=== PATIENT | female | born 1945 | race Caucasian/White ===

== ENCOUNTER → 2023-06-29 13:41 | Outpatient (REF) | payer MEDICARE, OTHER, SELFPAY ==
[2023-06-29 14:29] LABS: % Basophils 0.9 % (0-2); % Eosinophils 5.4 % (0-6); % Immature Granulocytes 0.2 % (0-0.5); % Lymphocytes 23.6 % (20.5-51.1); % Monocytes 5.8 % (1.7-9.3); % Neutrophils 64.1 % (42.2-75.2); Absolute Basophils 0.1 10^3/uL (0-0.2); Absolute Eosinophils 0.5 10^3/uL (0-0.7); Absolute Lymphocytes 2.1 10^3/uL (1.2-3.4); Absolute Monocytes 0.5 10^3/uL (0.1-0.6); Absolute Neutrophils 5.8 10^3/uL (1.4-6.5); Hematocrit 40.6 % (37.0-47.0); Hemoglobin 13.6 g/dL (12.0-16.0); Mean Corp Hgb Conc. 33.5 g/dL (33.0-37.0); Mean Corpuscular Hgb 31.1 pg (27.0-31.0); Mean Corpuscular Volume 92.7 fL (81.0-99.0); Mean Platelet Volume 9.8 fL (7.4-10.4); Nucleated Red Blood Cells % 0 %; Platelet Count 248 10^3/uL (130-400); Red Blood Cell Count 4.38 10^6/uL (4.20-5.40); Red Cell Dist. Width 13.2 % (11.5-14.5); White Blood Cell Count 9.1 10^3/uL (4.8-10.8)
== END ==
LOC: RCS 13:41
PROVIDERS: ATTENDING PHYSICIAN Internal Medicine; FAMILY PHYSICIAN Family Medicine
DX: J44.9 Chronic obstructive pulmonary disease, unspecified (principal)
CPT/HCPCS: 36415; 85025; 93005

== ENCOUNTER 2023-09-13 14:45 | Outpatient (RCR) | payer MEDICARE, OTHER, SELFPAY | END 2023-09-13 23:59 | disposition home or self-care (01) | LOC: PURB 14:45 | PROVIDERS: ATTENDING PHYSICIAN Internal Medicine; FAMILY PHYSICIAN Family Medicine | DX: J44.9 Chronic obstructive pulmonary disease, unspecified (principal) | CPT/HCPCS: 94625; G0237 ==

== ENCOUNTER 2023-09-13 15:32 | Emergency (ER) | payer MEDICARE, OTHER, SELFPAY ==
[2023-09-13 15:33] VITALS: BP 162/92
[2023-09-13 16:05] VITALS: BP 178/82
[2023-09-13 16:08] VITALS: BMI 36.3
[2023-09-13 16:30] LABS: % Basophils 0.9 % (0-2); % Eosinophils 6.1 % (0-6); % Immature Granulocytes 0.3 % (0-0.5); % Lymphocytes 22.7 % (20.5-51.1); % Monocytes 6.7 % (1.7-9.3); % Neutrophils 63.3 % (42.2-75.2); Absolute Basophils 0.1 10^3/uL (0-0.2); Absolute Eosinophils 0.5 10^3/uL (0-0.7); Absolute Lymphocytes 1.8 10^3/uL (1.2-3.4); Absolute Monocytes 0.5 10^3/uL (0.1-0.6); Absolute Neutrophils 4.9 10^3/uL (1.4-6.5); Hematocrit 40.2 % (37.0-47.0); Hemoglobin 13.7 g/dL (12.0-16.0); Mean Corp Hgb Conc. 34.1 g/dL (33.0-37.0); Mean Corpuscular Hgb 30.9 pg (27.0-31.0); Mean Corpuscular Volume 90.5 fL (81.0-99.0); Mean Platelet Volume 9.1 fL (7.4-10.4); Nucleated Red Blood Cells % 0 %; Platelet Count 237 10^3/uL (130-400); Red Blood Cell Count 4.44 10^6/uL (4.20-5.40); Red Cell Dist. Width 13.6 % (11.5-14.5); White Blood Cell Count 7.7 10^3/uL (4.8-10.8)
[2023-09-13] MEDS: TORADOL 15 MG IM (16:38)
[2023-09-13 16:41] LABS: ALT (SGPT) 11 U/L (0-35); AST (SGOT) 19 U/L (14-36); Albumin 4.2 g/dl (3.5-5.0); Alkaline Phosphatase 74 U/L (38-126); Blood Urea Nitrogen 17 mg/dl (7-17); Carbon Dioxide 26 mmol/L (22-30); Chloride 106 mmol/L (98-107); Estimated Creatinine Clearance 70 ml/min; Glucose 91 mg/dl (70-99); Potassium 4.2 mmol/L (3.5-5.1); Sodium 137 mmol/L (135-145); Total Bilirubin 0.5 mg/dl (0.2-1.3); Total Protein 7.1 g/dl (6.3-8.2); eGFR > 60.00
[2023-09-13 17:17] VITALS: BP 150/78
[2023-09-13 18:00] VITALS: BP 150/82
--- NOTE | 2023-09-13 18:46 | ED.GENMED ---
History of Present Illness
General
Chief Complaint: Blood Pressure Problem
Source: patient and family
Exam Limitations: none
Time Seen by Provider: 09/13/23 16:13
Nursing documentation reviewed up to this point in time: agreed with
Travel History
Have you had any contact with someone who has COVID-19?: No
Do you have any symptoms of coronavirus? Fever > 100 degrees, chills, cough, shortness of breath, sore throat, loss of taste or smell, muscle aches, or headache?: No
History of Present Illness
History of Present Illness:
78-year-old female with past ministry of asthma and COPD presenting to the emergency department today with concerns of having elevated blood pressure. Patient also had a mild headache over the past 8 days but claims that she always has a headache
and this is very normal for her. This was found that her pulmonary rehab doctor office visit. Denies any chest pain shortness of breath numbness weakness changes in bowel movements or urination.
Past History
Past History
ED Past Medical History: COPD and Other (Ulcers)
ED Past Surgical History: Cholecystectomy
Social History
Tobacco: Former smoker
Alcohol: None
Drug: None
Personal:
Living: with family
Review of Systems
Review of Systems
Allergies reviewed?: Yes
All Other Systems: ROS reviewed and negative except as documented in HPI and ROS
Phy Exam
Physical Exam
Physical Exam:
GENERAL: Alert , in no apparent distress
EYE: pupils equal and reactive
NECK: Supple, no significant adenopathy.
ENT: o/p clr, mmm.
CARDIAC: Regular rate and rhythm .
LUNGS: Clear breath sounds bilaterally, no acute respiratory distress, no wheezes/rales/rhonchi
ABDOMEN: Soft, without focal tenderness, no r/g, no cvat
NEUROLOGICAL: Alert and oriented, no focal neuro deficits
SKIN: Warm and dry, skin intact.
MUSCULOSKELETAL: No edema, well perfused.
PSYCH: Normal and appropriate interaction.
Course
Orders/Labs/Results
Orders:
Orders
09/13/23 16:23
CMP [Comprehensive Metabolic Panel] Urgent
Complete Blood Count/With Diff Urgent
09/13/23 16:33
EKG [Electrocardiogram (*1)] Urgent
Reason for Study: Chest Pain
CT Head W/o Iv Contrast Urgent
Comment:
Reason For Exam: headache, high bp
EKG- Treatment ONCE
Ketorolac [Toradol] 15 mg IM NOW STA
09/13/23 18:46
Lisinopril [Zestril] 5 mg PO NOW STA
Abnormal Lab Results
09/13/23
16:23
Eosinophils % 6.1 H %
(0-6)
09/13/23 16:23
09/13/23 16:23
Vital Signs
Initial and Last Documented VS:
Initial Vital Signs
Temp Pulse Resp BP Pulse Ox
98.3 F 67 18 162/92 97
09/13/23 15:33 09/13/23 15:33 09/13/23 15:33 09/13/23 15:33 09/13/23 15:33
Last Documented Vital Signs
Temp Pulse Resp BP Pulse Ox
98.3 F 59 28 150/82 95
09/13/23 15:33 09/13/23 18:53 09/13/23 18:45 09/13/23 18:53 09/13/23 18:45
MDM/Problems Addressed
MDM/Problems Addressed:
78-year-old female presenting to the emergency department today with concerns of blood pressure while at pulmonary rehab prior to arrival. Initially in the 170s over 90s but improving to the 150s over 80s here labs unremarkable CT head negative
which was ordered due to the patient's headache and associated high blood pressure. Blood pressure remaining in the 150s here concerning this patient started on a low-dose blood pressure medication advised for close outpatient follow-up.
*Critical Care Note
Total Time (30-74mins, 75-104mins- exclusive of procedures): Not Applicable
ED Attending Note
-
Portions of this chart may have been created with voice recognition software.� Occasional wrong word or��sound alike� substitutions may have occurred due to the inherent limitations of voice recognition software.
Discharge Plan
Departure
Patient Disposition: Home (Routine Discharge)
Date of Disposition: 09/13/23
Time of Disposition: 18:46
Patient with high blood pressure during this ER visit?: No
Condition: Good
Covid-19: Not Applicable
Discharge Problem:
High blood pressure
Instructions: High Blood Pressure (DC)
Prescriptions:
New
lisinopril 5 mg tablet
5 mg PO DAILY 14 Days Qty: 14 0RF
No Action
oxycodone-acetaminophen 5 MG/325 MG tablet
1 tab PO Q4HPRN PRN (Reason: Pain) Qty: 8 0RF
Referrals:
Chuyita Cespedes MD [Family Provider] -
Activity Restrictions/Additional Instructions:
You came to the emergency department today with concerns of elevated blood pressure. Here it was elevated in the 150s but at time of discharge. You are started on lisinopril. Please take this medication 1 time daily until follow-up with the
primary care doctor in the next 1 to 2 weeks for reassessment. Return to the emergency department for any worsening, new or concerning symptoms.
Interventions
Interventions:
*Risk Screen - Suicide Last Done: 09/13/23 15:33
*General Assessment Last Done: 09/13/23 15:33
*Neglect/Abuse Screening Last Done: 09/13/23 15:33
ED- Fall Risk Assessment Last Done: 09/13/23 16:08
*ED COVID-19 Vaccine History Last Done: 09/13/23 15:33
*Nursing Disposition Last Done: 09/13/23 19:00
ED- Cardiac Assessment Last Done: 09/13/23 16:08
ED- Neurological Assessment Last Done: 09/13/23 16:08
ED- Pulmonary Assessment Last Done: 09/13/23 16:08
Discharge Date and Time
Discharge Date/Time: 09/13/23 19:00
Print Language: [id number]
[2023-09-13] MEDS: ZESTRIL 5 MG PO (18:53)
== END 2023-09-13 19:00 | disposition home or self-care (01) ==
LOC: EMR 15:32
PROVIDERS: Physician Assistant; EMERGENCY PHYSICIAN Emergency Medicine; FAMILY PHYSICIAN Family Medicine
DX: R03.0 Elevated blood-pressure reading, without diagnosis of hypertension (principal); J45.909 Unspecified asthma, uncomplicated; J44.9 Chronic obstructive pulmonary disease, unspecified; Z87.891 Personal history of nicotine dependence; Z90.49 Acquired absence of other specified parts of digestive tract
CPT/HCPCS: 99284; 96372; 70450; 80053; 85025; 93005

== ENCOUNTER 2023-10-18 14:45 | Outpatient (RCR) | payer MEDICARE, OTHER, SELFPAY | END 2023-10-18 23:59 | disposition home or self-care (01) | LOC: PURB 14:45 | PROVIDERS: ATTENDING PHYSICIAN Internal Medicine; FAMILY PHYSICIAN Family Medicine | DX: J44.9 Chronic obstructive pulmonary disease, unspecified (principal) | CPT/HCPCS: 94625 ==

== ENCOUNTER 2023-11-15 14:45 | Outpatient (RCR) | payer MEDICARE, OTHER, SELFPAY | END 2023-11-15 23:59 | disposition home or self-care (01) | LOC: PURB 14:45 | PROVIDERS: ATTENDING PHYSICIAN Internal Medicine; FAMILY PHYSICIAN Family Medicine | DX: J44.9 Chronic obstructive pulmonary disease, unspecified (principal) | CPT/HCPCS: 94625 ==

== ENCOUNTER 2023-12-11 14:45 | Outpatient (RCR) | payer MEDICARE, OTHER, SELFPAY | END 2023-12-12 09:52 | disposition home or self-care (01) | LOC: PURB 14:45 | PROVIDERS: ATTENDING PHYSICIAN Internal Medicine; FAMILY PHYSICIAN Family Medicine | DX: J44.9 Chronic obstructive pulmonary disease, unspecified (principal) | CPT/HCPCS: 94625 ==